=== PATIENT | male | born 1970 | race Hispanic/Latino ===

== ENCOUNTER 2022-04-21 14:10 | Emergency (ER) | payer BC ==
[~2022-04-21] VITALS: Ht 170.2 cm; Wt 78.2 kg
[2022-04-21] VITALS (7 sets, daily range): BP systolic 138–175; BP diastolic 93–124
[2022-04-21 14:54] LABS: HEMATOCRIT 51.2 % (39.0-50.0); HEMOGLOBIN 17.3 g/dl (14.0-18.0); MEAN CELL VOLUME 88.9 fL CALC (80.0-100.0); MEAN CORPUSCULAR HGB CONC 33.8 g/dL CAL (32.0-36.0); NEUT# 2.75 thou/uL (1.82-7.42); RED BLOOD COUNT 5.76 mill/uL (4.70-6.10); RED CELL DISTRI WIDTH 11.7 % (11.5-15.5)
[2022-04-21 15:14] LABS: ALBUMIN 4.5 g/dL (3.2-5.0); ALKALINE PHOSPHATASE 97 u/l (38-126); ANION GAP 15 (6-22 (CALC)); BILIRUBIN, TOTAL 0.5 mg/dL (0.0-1.4); BUN 16 mg/dL (9-20); BUN/CREATININE RATIO 17 (12-20 (CALC)); CARBON DIOXIDE 23 mmol/l (22-30); CHLORIDE 103 mmol/l (95-108); GFR FOR AFR.AMER. > 60 ML/MIN (>=60 (CALC)); GFR OTHER RACES > 60 ML/MIN (>=60 (CALC)); LIPASE 119 u/l (23-300); SGOT/AST 59 u/l (17-59); SODIUM 137 mmol/l (137-146)
[2022-04-21 15:22] LABS: MYOGLOBIN 51 ng/mL (0 - 121)
[2022-04-21 17:18] LABS: URINE BILIRUBIN - DIPSTICK NEGATIVE (NEGATIVE); URINE BLOOD DIPSTICK NEGATIVE (NEGATIVE); URINE COLOR YELLOW; URINE GLUCOSE - DIPSTICK NEGATIVE (NEGATIVE); URINE KETONE NEGATIVE (NEGATIVE); URINE LEUK ESTERASE NEGATIVE (NEGATIVE); URINE NITRITE - DIPSTICK NEGATIVE (Negative); URINE PROTEIN - DIPSTICK NEGATIVE (NEG-TRACE); URINE SPECIFIC GRAVITY >=1.030; URINE UROBILINOGEN - DIPSTICK 0.2 E.U./dL (0.2)
== END 2022-04-21 17:46 | disposition home or self-care (01) | DRG 866 ==
LOC: ED 14:10
PROVIDERS: Nurse Practitioner
DX: B34.9 Viral infection, unspecified (principal); I10 Essential (primary) hypertension; Z20.822 Contact with and (suspected) exposure to COVID-19

== ENCOUNTER 2023-12-18 10:04 | Emergency (ER) | payer OTHER ==
[~2023-12-18] VITALS: Ht 170.2 cm; Wt 68.4 kg
[2023-12-18] VITALS (9 sets, daily range): BP systolic 136–155; BP diastolic 84–99
[2023-12-18] MEDS ORDERED: LISINOPRIL20 M1 PO (10:25)
[2023-12-18 10:42] LABS: URINE BLOOD DIPSTICK Trace-lysed (NEGATIVE); URINE GLUCOSE - DIPSTICK Negative (NEGATIVE); URINE KETONE Trace mg/dL (NEGATIVE); URINE LEUK ESTERASE Negative (NEGATIVE); URINE NITRITE - DIPSTICK Negative (Negative); URINE PROTEIN - DIPSTICK 100 mg/dL (NEG-TRACE); URINE SPECIFIC GRAVITY 1.025
[2023-12-18 10:43] LABS: URINE COLOR Dark yellow
[2023-12-18 10:45] LABS: BASO% 0.2 % (0-3); EOS% 0.7 % (0-8); HEMATOCRIT 45.6 % (39.0-50.0); IMMATURE GRANULOCYTES 0.2 % (0.0-5.0); LYMPH% 10.5 % (15-41); MEAN CELL VOLUME 89.6 fL CALC (80.0-100.0); MEAN CORPUSCULAR HGB 29.7 pG CALC (26.0-32.0); MEAN CORPUSCULAR HGB CONC 33.1 g/dL CAL (32.0-36.0); MONO% 11.9 % (2-13); NEUT# 9.6 thou/uL (1.82-7.42); NEUT% 76.5 % (42-76); RED BLOOD COUNT 5.09 mill/uL (4.70-6.10); RED CELL DISTRI WIDTH 11.5 % (11.5-15.5)
[2023-12-18 10:46] LABS: HEMOGLOBIN 15.1 g/dl (14.0-18.0)
[2023-12-18 10:56] LABS: ALBUMIN 4.3 g/dL (3.2-5.0); ALKALINE PHOSPHATASE 77 u/l (38-126); BILIRUBIN, TOTAL 0.4 mg/dL (0.2-1.3); BUN 17 mg/dL (9-20); BUN/CREATININE RATIO 24 (12-20 (CALC)); CHLORIDE 101 mmol/l (95-108); CREATININE 0.7 mg/dL (0.7-1.3); GFR FOR AFR.AMER. > 60 ML/MIN (>=60 (CALC)); GFR OTHER RACES > 60 ML/MIN (>=60 (CALC)); POTASSIUM 3.8 mmol/l (3.5-5.1); SGOT/AST 40 u/l (17-59); SODIUM 137 mmol/l (137-146); TOTAL PROTEIN 7.1 g/dL (6.3-8.2)
[2023-12-18 10:59] LABS: URINE SQUAMOUS EPITHELIAL CELL RARE EPI/hpf (0-FEW); URINE WBC 0-2 WBC/hpf (0-5)
[2023-12-18 11:03] LABS: URINE BACTERIA FEW hpf; URINE HYALINE CAST FEW lpf (NONE-RARE); URINE MUCUS MODERATE hpf (NONE-FEW)
[2023-12-18 11:07] LABS: ANION GAP 12 (6-22 (CALC)); CARBON DIOXIDE 28 mmol/l (22-30)
[2023-12-18] MEDS ORDERED: IPRATROPIU0.5 MG/3 M IN (11:27)
[2023-12-18] MEDS ORDERED: PREDNISONE50 MG PO (11:27)
[2023-12-18] MEDS ORDERED: VENTOLIN HFA108 MCG PO (11:27)
[2023-12-18] MEDS ORDERED: ZPAK PO (11:27)
== END 2023-12-18 12:57 | disposition home or self-care (01) | DRG 153 ==
LOC: ED 10:04
PROVIDERS: Family Medicine
DX: J06.9 Acute upper respiratory infection, unspecified (principal); I10 Essential (primary) hypertension; F17.200 Nicotine dependence, unspecified, uncomplicated; Z20.822 Contact with and (suspected) exposure to COVID-19